=== PATIENT | male | born 1945 | race Asian ===

== ENCOUNTER 2023-08-05 12:20 | Inpatient (IN) | payer MEDICARE ==
[2023-08-05 13:15] LABS: #Monocytes 0.4 thou/uL (0.11-0.59); #Neutrophils 6.5 thou/uL (1.40-6.50); %Basophils 0.2 % (0.0-1.0); %Eosinophils 0.1 % (0.0-10.0); %Lymphocytes 19.3 % (21.0-51.0); %Monocytes 4.7 % (0.0-10.0); %Neutrophils 75.2 % (42.0-75.0); Hematocrit 48.6 % (42.0-52.0); Hemoglobin 16.7 g/dL (14.0-18.0); Mean Corpuscular HGB CONC 34.4 g/dL (32.0-36.0); Mean Corpuscular Hemoglobin 32.7 pg (27.0-31.0); Mean Corpuscular Volume 95.1 fl (78.0-98.0); Mean Platelet Volume 8.9 fL (7.4-10.4); Platelet Count 259 10x3/uL (130-400); RBC Distribution Width 12.5 % (11.5-14.5); Red Blood Cell (RBC) Count 5.11 mill/uL (4.70-6.10); White Blood Cell (WBC) Count 8.6 10x3/uL (4.8-10.8)
[2023-08-05 13:42] LABS: ALT (SGPT) 56 U/L (8-55); AST (SGOT) 68 U/L (5-34); Alkaline Phosphatase 58 U/L (40-110); Anion Gap 17 mmol/L (10-20); BUN (Urea Nitrogen) 33 mg/dL (8.4-25.7); CK (CPK) 990 U/L (30-200); Calc. Creatinine Clearance 0 mL/min (70-130); Calcium 8.9 mg/dL (7.8-10.44); Carbon Dioxide 22 mmol/L (23-31); Chloride 106 mmol/L (98-107); Estimated GFR 89; Globulin 2.9 g/dL (2.4-3.5); Glucose 170 mg/dL (83-110); Lipase Less than 4 U/L (8-78); Magnesium 2.3 mg/dL (1.6-2.6); Potassium 3.8 mmol/L (3.5-5.1); Protein, Total 6.9 g/dL (5.8-8.1); Sodium 141 mmol/L (136-145)
[2023-08-05] MEDS ORDERED: Vancomycin 1 GM/200 ML (FROZEN) BAG ONE (14:12)
[2023-08-05] MEDS ORDERED: Cefepime 2 GM VIAL ONE (14:12)
[2023-08-05] MEDS ORDERED: Sodium Chloride 0.9% 100 ML ONE (14:12)
[2023-08-05 14:16] LABS: SARS-CoV-2 NAA Rapid Test Not Detected (NotDetected)
[2023-08-05 15:21] LABS: Bacteria/HPF None Seen HPF (None Seen); Bilirubin Negative (Negative); Blood, Urine 1+ (Negative); CAUTI Indications for Culture Alt mental st,lethar; Clarity Clear (Clear); Glucose, Urine (Dipstick) Normal (Negative); Ketone, Urine 20 mg/dL (Negative); Leukocyte Negative Leu/uL (Negative); Nitrite Negative (Negative); Protein, Urine (Dipstick) 50 mg/dL (Neg-Trace); Specific Gravity, Urine 1.036 (1.002-1.036); Squamous Epithelial None Seen HPF (0-3); WBC/HPF 0-3 HPF (0-3)
[2023-08-05 15:26] LABS: Urine Culture Reflex No No
[2023-08-05 16:24] LABS: Lactic Acid 1.1 mmol/L (0.5-2.2)
[2023-08-05 16:28] LABS: Phosphorus 4.2 mg/dL (2.3-4.7); Uric Acid 7.9 mg/dL (3.5-7.2)
[2023-08-05] MEDS ORDERED: Senokot S 8.6-50 MG TAB PO PRN (16:45)
[2023-08-05] MEDS ORDERED: Ondansetron PF 4 MG/2 ML Vial IVP PRN (16:45)
[2023-08-05] MEDS: Sodium Chloride 0.9% 1,000 ML IV SCH (22:28)
[2023-08-05] MEDS: Acetaminophen 325 MG TAB PO PRN (22:28)
[2023-08-05] MEDS: Famotidine 20 MG TAB PO SCH (22:29)
[2023-08-05] MEDS: Atorvastatin Calcium 10 MG TAB PO SCH (22:29)
[2023-08-05] MEDS: Doxycycline 100 MG CAP PO SCH (22:29)
[2023-08-05] MEDS: cefTRIAXone\\ROCEPHIN 1 GM in Sodium Chloride 0.9% 100 ML IVPB SCH (22:43)
[2023-08-06 03:16] VITALS: BMI 18.1
[2023-08-06 05:25] LABS: #Eosinphils 0.1 thou/uL (0.0-0.7); #Monocytes 0.8 thou/uL (0.11-0.59); #Neutrophils 5.7 thou/uL (1.40-6.50); %Basophils 0.2 % (0.0-1.0); %Eosinophils 0.8 % (0.0-10.0); %Lymphocytes 25.8 % (21.0-51.0); %Monocytes 8.5 % (0.0-10.0); %Neutrophils 64.5 % (42.0-75.0); Hemoglobin 14.6 g/dL (14.0-18.0); Mean Corpuscular Hemoglobin 31.9 pg (27.0-31.0); Mean Corpuscular Volume 94.1 fl (78.0-98.0); Mean Platelet Volume 8.9 fL (7.4-10.4); Platelet Count 217 10x3/uL (130-400); RBC Distribution Width 12.4 % (11.5-14.5); Red Blood Cell (RBC) Count 4.57 mill/uL (4.70-6.10); White Blood Cell (WBC) Count 8.8 10x3/uL (4.8-10.8)
[2023-08-06 06:05] LABS: ALT (SGPT) 49 U/L (8-55); AST (SGOT) 67 U/L (5-34); Albumin 3.4 g/dL (3.4-4.8); Alkaline Phosphatase 49 U/L (40-110); Anion Gap 10 mmol/L (10-20); BUN (Urea Nitrogen) 22 mg/dL (8.4-25.7); Bilirubin, Total 0.8 mg/dL (0.2-1.2); CK (CPK) 868 U/L (30-200); Calc. Creatinine Clearance 57 mL/min (70-130); Calcium 8.1 mg/dL (7.8-10.44); Carbon Dioxide 26 mmol/L (23-31); Cardiac Risk 5.7 (Less than 4.5); Chloride 108 mmol/L (98-107); Cholesterol 182 mg/dl (< 200 Desired); Estimated GFR 92; Globulin 2.4 g/dL (2.4-3.5); Glucose 93 mg/dL (83-110); HDL Cholesterol 32 mg/dL (>60 Neg Risk); LDL Cholesterol, Calculated 130 mg/dL; Phosphorus 2.3 mg/dL (2.3-4.7); Potassium 3.6 mmol/L (3.5-5.1); Protein, Total 5.8 g/dL (5.8-8.1); Sodium 140 mmol/L (136-145); Triglycerides 98 mg/dL (Less than 150); Uric Acid 5.8 mg/dL (3.5-7.2)
[2023-08-06] MEDS: Amlodipine 5 MG TAB PO SCH ×2 (08:19→16:41)
[2023-08-06] MEDS: Aspirin 81 mg Enteric Coated Tablet PO SCH (08:19)
[2023-08-06] MEDS ORDERED: Melatonin 3 MG TAB PO PRN (20:56)
[2023-08-06] MEDS: traZODone HCl 50 MG TAB PO PRN (22:02)
[2023-08-06] MEDS: Melatonin 3 MG TAB PO PRN (23:38)
[2023-08-07 05:22] LABS: #Monocytes 0.6 thou/uL (0.11-0.59); #Neutrophils 4.3 thou/uL (1.40-6.50); %Basophils 0.6 % (0.0-1.0); %Eosinophils 0.6 % (0.0-10.0); %Lymphocytes 19.9 % (21.0-51.0); %Neutrophils 68.6 % (42.0-75.0); Hematocrit 43.6 % (42.0-52.0); Mean Corpuscular HGB CONC 34.4 g/dL (32.0-36.0); Mean Corpuscular Hemoglobin 32.3 pg (27.0-31.0); Mean Platelet Volume 9.1 fL (7.4-10.4); Platelet Count 220 10x3/uL (130-400); RBC Distribution Width 12.2 % (11.5-14.5); Red Blood Cell (RBC) Count 4.64 mill/uL (4.70-6.10); White Blood Cell (WBC) Count 6.2 10x3/uL (4.8-10.8)
[2023-08-07 05:55] LABS: Anion Gap 13 mmol/L (10-20); BUN (Urea Nitrogen) 10 mg/dL (8.4-25.7); CK (CPK) 503 U/L (30-200); Calc. Creatinine Clearance 61 mL/min (70-130); Calcium 8.5 mg/dL (7.8-10.44); Carbon Dioxide 20 mmol/L (23-31); Chloride 106 mmol/L (98-107); Estimated GFR 94; Glucose 96 mg/dL (83-110); Potassium 3.1 mmol/L (3.5-5.1); Sodium 136 mmol/L (136-145)
[2023-08-07] MEDS ORDERED: hydrALAZINE 20 MG/ML VIAL SLOW IVP PRN ×2 (07:24→10:12)
[2023-08-07] MEDS: Potassium Bicarbonate/Cit Ac 20 MEQ TAB PO SCH (07:56)
[2023-08-07] MEDS: Amlodipine 10 MG TAB PO SCH (07:57)
[2023-08-07] MEDS: hydrALAZINE 25 MG TAB PO PRN (12:08)
[2023-08-08 05:23] LABS: Anion Gap 11 mmol/L (10-20); BUN (Urea Nitrogen) 8 mg/dL (8.4-25.7); CK (CPK) 230 U/L (30-200); Calc. Creatinine Clearance 64 mL/min (70-130); Calcium 8.3 mg/dL (7.8-10.44); Carbon Dioxide 24 mmol/L (23-31); Chloride 106 mmol/L (98-107); Estimated GFR 96; Glucose 102 mg/dL (83-110); Potassium 3.4 mmol/L (3.5-5.1); Sodium 138 mmol/L (136-145)
[2023-08-08] MEDS: Ondansetron ODT 4 MG TAB PO PRN (14:15)
[2023-08-08 15:50] VITALS: BP 163/79; TEMP 98.2
== END 2023-08-08 16:54 | disposition home or self-care (01) | DRG 557 ==
LOC: ERS 12:20 → SURG B 16:15 → OBSVTOIN 08-06 12:31
PROVIDERS: ADMIT Internal Medicine; ATTEND Internal Medicine
DX: M62.82 Rhabdomyolysis (principal); J15.69 Pneumonia due to other Gram-negative bacteria; E44.0 Moderate protein-calorie malnutrition; Z68.1 Body mass index [BMI] 19.9 or less, adult; I10 Essential (primary) hypertension; I16.0 Hypertensive urgency; R53.81 Other malaise; R53.1 Weakness; E78.5 Hyperlipidemia, unspecified; F17.210 Nicotine dependence, cigarettes, uncomplicated; Z91.148 Patient's other noncompliance with medication regimen for other reason; Z86.73 Personal history of transient ischemic attack (TIA), and cerebral infarction without residual deficits; Z79.899 Other long term (current) drug therapy; Z11.52 Encounter for screening for COVID-19
CPT/HCPCS: 36415; 71045; 80048; 80053; 80061; 81001; 82550; 83605; 83690; 83735; 83880; 84100; 84145; 84443; 84484; 84550; 85025; 87040; 87086; 93005; 96361; 96365; 96367; J0692; J0696; J3370-JW; J3490; J7050; Q0162